=== PATIENT | female | born 1995 | race Caucasian/White ===

== ENCOUNTER 2017-12-03 18:10 | Emergency (ER) | payer BC, OTHER ==
[~2017-12-03] VITALS: Ht 175.3 cm; Wt 0.6 kg
[2017-12-03 18:13] VITALS: BP 135/72
[2017-12-03] MEDS ORDERED: PRED10TA PO (19:17)
== END 2017-12-03 19:46 | disposition home or self-care (01) ==
LOC: ER 18:11
DX: J03.90 Acute tonsillitis, unspecified (principal); Z79.899 Other long term (current) drug therapy
CPT/HCPCS: 87081; 87880; 99284